=== PATIENT | male | born 1980 | race Hispanic/Latino ===

== ENCOUNTER 2017-06-22 13:50 | Emergency (ER) | payer MEDICAID, OTHER | END 2017-06-22 14:11 | disposition home or self-care (01) | LOC: EDH 13:50 | DX: F41.1 Generalized anxiety disorder (principal); F13.10 Sedative, hypnotic or anxiolytic abuse, uncomplicated; R45.851 Suicidal ideations ==

== ENCOUNTER 2017-06-23 07:20 | Emergency (ER) | payer MEDICAID, OTHER | END 2017-06-23 08:36 | disposition home or self-care (01) | LOC: EDH 07:20 | DX: R07.89 Other chest pain (principal); R06.02 Shortness of breath; F41.9 Anxiety disorder, unspecified | CPT/HCPCS: 71045; 93005 ==

== ENCOUNTER 2017-11-26 04:40 | Emergency (ER) | payer MEDICAID ==
[2017-11-26] MEDS ORDERED: HYDROXYZINE HCL 10 MG TABLET ONE (05:25)
[2017-11-26] MEDS ORDERED: LEVETIRACETAM 500 MG TABLET PO ONE (05:25)
== END 2017-11-26 05:48 | disposition home or self-care (01) ==
LOC: EDH 04:40
DX: F41.9 Anxiety disorder, unspecified (principal); F31.9 Bipolar disorder, unspecified

== ENCOUNTER 2018-04-03 00:29 | Emergency (ER) | payer MEDICAID ==
[2018-04-03] MEDS ORDERED: HYDROXYZINE HCL 25 MG TABLET ONE (01:23)
[2018-04-03] MEDS ORDERED: LEVETIRACETAM 500 MG TABLET PO ONE (01:29)
== END 2018-04-03 02:59 | disposition home or self-care (01) ==
LOC: EDH 00:29
DX: F41.9 Anxiety disorder, unspecified (principal); F13.20 Sedative, hypnotic or anxiolytic dependence, uncomplicated; F31.9 Bipolar disorder, unspecified; I10 Essential (primary) hypertension

== ENCOUNTER 2018-07-24 22:24 | Emergency (ER) | payer MEDICAID, OTHER ==
[2018-07-24 22:48] LABS: BASOPHILS % (AUTO) 0.4 % (0.0-5.0); LYMPHOCYTES % (AUTO) 6.1 % (21.0-51.0); MEAN CORPUSCULAR HEMOGLOBIN 31.7 pg (27.0-33.0); MEAN CORPUSCULAR HGB CONC 33.9 g/dL (32.0-36.0); MEAN CORPUSCULAR VOLUME 93.5 fL (79-99); NEUTROPHILS % (AUTO) 88.5 % (40.0-77.0); PLATELET COUNT (AUTO) 342 K/uL (130-400); RED BLOOD CELL COUNT(AUTO) 5.25 MIL/uL (4.50-6.20); RED CELL DISTRIBUTION WIDTH 14.3 % (11.0-15.5); WHITE BLOOD COUNT (AUTO) 17.9 K/uL (4.8-10.8)
[2018-07-24 22:57] LABS: CREATININE 1.1 mg/dL (0.5-1.5); POTASSIUM 3.1 mmol/L (3.5-5.1)
[2018-07-24] MEDS ORDERED: ONDANSETRON HCL 4 MG/2 ML VIAL ONE (23:34)
[2018-07-24] MEDS ORDERED: POTASSIUM CHLORIDE 20 MEQ ERTAB PO ONE (23:34)
[2018-07-24] MEDS ORDERED: LORAZEPAM 2 MG/ML 1 ML VIAL ONE (23:35)
[2018-07-25] MEDS ORDERED: CEFTRIAXONE SODIUM 1 GM ONE (01:15)
[2018-07-25 01:40] LABS: APPEARANCE,URINE Clear (CLEAR); BILIRUBIN,URINE Negative (NEGATIVE); COLOR,URINE Yellow (YELLOW); GLUCOSE, URINE (UA) Negative (NEGATIVE); KETONES,URINE >=160 mg/dL (NEGATIVE); LEUKOCYTE ESTERASE ,URINE Negative (NEGATIVE); NITRATE,URINE Negative (NEGATIVE); OCCULT BLOOD,URINE Small (NEGATIVE); PH,URINE 5.5 (5.0-8.0); PROTEIN,URINE Trace mg/dL (NEGATIVE); UROBILINOGEN,URINE 0.2 mg/dL (0.2-1.0)
[2018-07-25 01:47] LABS: AMPHET/METH SCREEN,URINE NEGATIVE (NEGATIVE); BARBITURATE SCREEN, URINE NEGATIVE (NEGATIVE); BENZODIAZEPINES SCREEN,URINE POSITIVE (NEGATIVE); CANNABINOID SCREEN,URINE NEGATIVE (NEGATIVE); COCAINE SCREEN,URINE NEGATIVE (NEGATIVE); OPIATE SCREEN,URINE NEGATIVE (NEGATIVE); PHENCYCLIDINE SCREEN,URINE NEGATIVE (NEGATIVE)
[2018-07-25 01:53] LABS: BACTERIA,URINE Rare /HPF (None Seen); RBC,URINE 0-1 /HPF (0-1); SQUAMOUS EPITHELIAL CELL,UR Moderate /HPF (0-2); WBC,URINE None Seen /HPF (0-1)
== END 2018-07-25 03:04 ==
LOC: EDH 22:24
DX: S00.83XA Contusion of other part of head, initial encounter (principal); E87.6 Hypokalemia; R19.7 Diarrhea, unspecified; F13.20 Sedative, hypnotic or anxiolytic dependence, uncomplicated; I10 Essential (primary) hypertension; F41.9 Anxiety disorder, unspecified; F31.9 Bipolar disorder, unspecified; W18.39XA Other fall on same level, initial encounter; Y93.89 Activity, other specified; Y92.89 Other specified places as the place of occurrence of the external cause; Y99.8 Other external cause status
CPT/HCPCS: 36415; 70450; 71045; 80048; 80305; 81001; 85025; 93005; 96361; 96374; 96375; 99285; J0696; J2060; J2405

== ENCOUNTER 2018-10-05 14:40 | Emergency (ER) | payer MEDICAID | END 2018-10-05 15:29 | disposition home or self-care (01) | LOC: EDH 14:40 | DX: S00.03XA Contusion of scalp, initial encounter (principal); F13.10 Sedative, hypnotic or anxiolytic abuse, uncomplicated; F41.9 Anxiety disorder, unspecified; F31.9 Bipolar disorder, unspecified; I10 Essential (primary) hypertension; F20.9 Schizophrenia, unspecified; Z72.0 Tobacco use; Y08.89XA Assault by other specified means, initial encounter; Y93.89 Activity, other specified; Y92.89 Other specified places as the place of occurrence of the external cause; Y99.8 Other external cause status ==

== ENCOUNTER 2018-10-06 11:02 | Emergency (ER) | payer MEDICAID ==
[2018-10-06] MEDS ORDERED: HYDROXYZINE HCL 25 MG TABLET ONE (11:15)
== END 2018-10-06 12:30 | disposition home or self-care (01) ==
LOC: EDH 11:02
DX: R07.89 Other chest pain (principal); T42.4X5A Adverse effect of benzodiazepines, initial encounter; F31.9 Bipolar disorder, unspecified; F20.9 Schizophrenia, unspecified; F41.9 Anxiety disorder, unspecified; I10 Essential (primary) hypertension; Z72.0 Tobacco use; Y92.89 Other specified places as the place of occurrence of the external cause
CPT/HCPCS: 84484; 93005

== ENCOUNTER 2019-09-10 09:43 | Emergency (ER) | payer MEDICAID | END 2019-09-10 10:31 | disposition left against medical advice (07) | LOC: EDH 09:43 | DX: S60.511A Abrasion of right hand, initial encounter (principal); R56.9 Unspecified convulsions; F13.10 Sedative, hypnotic or anxiolytic abuse, uncomplicated; F31.9 Bipolar disorder, unspecified; I10 Essential (primary) hypertension; F20.9 Schizophrenia, unspecified; Z79.899 Other long term (current) drug therapy; Z72.0 Tobacco use; X58.XXXA Exposure to other specified factors, initial encounter; Y93.89 Activity, other specified; Y92.89 Other specified places as the place of occurrence of the external cause; Y99.8 Other external cause status | CPT/HCPCS: 93005 ==

== ENCOUNTER 2019-12-08 09:19 | Emergency (ER) | payer MEDICAID ==
[2019-12-08] MEDS ORDERED: SODIUM CHLORIDE 0.9% 1000ML 1,000 ML IV ONE (09:20)
[2019-12-08] MEDS ORDERED: DiphenhydrAMINE HCL 50 MG/ML VIAL ONE (09:58)
[2019-12-08 10:37] LABS: BASOPHILS % (AUTO) 0.9 % (0.0-5.0); EOSINOPHILS % (AUTO) 3.6 % (0.0-8.0); HEMATOCRIT 51.7 % (42-54); LYMPHOCYTES % (AUTO) 24.6 % (21.0-51.0); MEAN CORPUSCULAR HEMOGLOBIN 31.9 pg (27.0-33.0); MEAN CORPUSCULAR HGB CONC 34.8 g/dL (32.0-36.0); MEAN CORPUSCULAR VOLUME 91.7 fL (79-99); MONOCYTES % (AUTO) 5.9 % (3.0-13.0); NEUTROPHILS % (AUTO) 64.5 % (40.0-77.0); PLATELET COUNT (AUTO) 307 K/uL (130-400); RED BLOOD CELL COUNT(AUTO) 5.64 MIL/uL (4.50-6.20); RED CELL DISTRIBUTION WIDTH 16.9 % (11.0-15.5); WHITE BLOOD COUNT (AUTO) 7.9 K/uL (4.8-10.8)
[2019-12-08 10:51] LABS: POTASSIUM 3.1 mmol/L (3.5-5.1)
[2019-12-08 10:55] LABS: ALBUMIN 3.8 g/dL (3.5-5.0); BILIRUBIN,TOTAL 0.5 mg/dL (0.2-1.0); TOTAL PROTEIN, SERUM 7.5 g/dL (6.0-8.3)
== END 2019-12-08 11:08 | disposition left against medical advice (07) ==
LOC: EDH 09:19 → EEVIPCON 09:19 → EDH 11:08
DX: G40.89 Other seizures (principal); F13.239 Sedative, hypnotic or anxiolytic dependence with withdrawal, unspecified; F41.1 Generalized anxiety disorder; F31.9 Bipolar disorder, unspecified; I10 Essential (primary) hypertension; F20.9 Schizophrenia, unspecified
CPT/HCPCS: 36415; 71045; 80053; 82550; 84484; 85025; 93005; 96361; 96374; 99285; J1200; J7030

== ENCOUNTER 2023-09-25 17:46 | Emergency (ER) | payer MEDICAID ==
[~2023-09-25] VITALS: Ht 175.3 cm; Wt 80.7 kg
[2023-09-25] MEDS: LORAZEPAM 2 MG/ML 1 ML VIAL IVP ONE (18:43)
[2023-09-25] MEDS: 0.9%NACL 1000ML 1,000 ML IV ONE (18:43)
[2023-09-25 18:50] LABS: BASOPHILS # (AUTO) 0.08 K/uL (0.00-0.20); EOSINOPHILS # (AUTO) 0.08 K/uL (0.00-0.70); HEMATOCRIT 49.4 % (42-54); IMMATURE GRANULOCYTE ABSOLUTE 0.09 K/uL (0-1); LYMPHOCYTES # (AUTO) 3.3 K/uL (1.0-4.8); LYMPHOCYTES % (AUTO) 39.7 % (21.0-51.0); MEAN CORPUSCULAR HEMOGLOBIN 31.7 pg (27.0-33.0); MEAN CORPUSCULAR HGB CONC 34.6 g/dL (32.0-36.0); MEAN CORPUSCULAR VOLUME 91.5 fL (79-99); MONOCYTES # (AUTO) 0.5 K/uL (0.1-1.0); NEUTROPHILS # (AUTO) 4.2 K/uL (1.8-7.7); NEUTROPHILS % (AUTO) 51.2 % (40.0-77.0); PLATELET COUNT (AUTO) 367 K/uL (130-400); RED CELL DISTRIBUTION WIDTH 12.4 % (11.0-15.5); WHITE BLOOD COUNT (AUTO) 8.3 K/uL (4.8-10.8)
[2023-09-25 19:00] LABS: CREATININE 0.8 mg/dL (0.5-1.3); POTASSIUM 4.3 mmol/L (3.5-5.1)
[2023-09-25 19:05] LABS: ALBUMIN 4.1 g/dL (3.5-5.0); BILIRUBIN,TOTAL 0.1 mg/dL (0.2-1.0); MAGNESIUM 1.9 mg/dL (1.80-2.40); TOTAL PROTEIN, SERUM 8.1 g/dL (6.0-8.3)
[2023-09-25 19:17] LABS: APPEARANCE,URINE CLEAR (CLEAR); BILIRUBIN,URINE NEGATIVE (NEGATIVE); COLOR,URINE COLORLESS (YELLOW); GLUCOSE, URINE (UA) NEGATIVE (NEGATIVE); KETONES,URINE NEGATIVE (NEGATIVE); LEUKOCYTE ESTERASE ,URINE NEGATIVE Leu/uL (NEGATIVE); NITRATE,URINE NEGATIVE (NEGATIVE); OCCULT BLOOD,URINE NEGATIVE (NEGATIVE); PROTEIN,URINE NEGATIVE (NEGATIVE); UROBILINOGEN,URINE 0.2 mg/dL (0.2-1.0)
[2023-09-25 19:18] LABS: ADD UA MICROSCOPIC YES
[2023-09-25 19:19] LABS: MUCUS,URINE RARE LPF (None Seen); RBC,URINE 0-1 /HPF (0-1); WBC,URINE 0-1 /HPF (0-1)
[2023-09-25 19:24] LABS: AMPHET/METH SCREEN,URINE NEGATIVE (NEGATIVE); BARBITURATE SCREEN, URINE NEGATIVE (NEGATIVE); BENZODIAZEPINES SCREEN,URINE POSITIVE (NEGATIVE); CANNABINOID SCREEN,URINE POSITIVE (NEGATIVE); COCAINE SCREEN,URINE NEGATIVE (NEGATIVE); OPIATE SCREEN,URINE NEGATIVE (NEGATIVE); PHENCYCLIDINE SCREEN,URINE NEGATIVE (NEGATIVE)
[2023-09-25 19:52] VITALS: BP 131/86; PULSE 98; RESP 18; O2SAT 97
== END 2023-09-25 20:10 | disposition home or self-care (01) ==
LOC: EDH 17:46
DX: F41.0 Panic disorder [episodic paroxysmal anxiety] (principal); F19.10 Other psychoactive substance abuse, uncomplicated; R07.89 Other chest pain; F31.9 Bipolar disorder, unspecified; F20.9 Schizophrenia, unspecified; Z88.8 Allergy status to other drugs, medicaments and biological substances
CPT/HCPCS: 99285; 96374; 71045; 96361; 82550; 83735; 84484; 80053; 80305; 85025; 36415; 93005; 81001; J7030; J2060

== ENCOUNTER 2024-06-04 09:38 | Emergency (ER) | payer MEDICAID ==
[~2024-06-04] VITALS: Ht 177.8 cm; Wt 88.5 kg
[2024-06-04] MEDS ORDERED: ALPR2TAB7 PO (09:57)
--- NOTE | 2024-06-04 09:59 | ERN ---
General Chief Complaint: Withdrawl Stated Complaint: BENZODIAZEPINE WITHDRAWL Time Seen by MD: 09:39 History of Present Illness Initial Comments 44-year-old male, history of benzodiazepine addiction, presents for benzodiazepine withdrawals. Patient reports that he used to take over 40 mg a day of benzodiazepines (Xanax) daily. He has been trying to taper on his own. He was down to 12 mg daily (6 mg in the a.m. 6 mg in the afternoon). He was gone to [facility] and other outpatient facilities in his but unable to coordinate outpatient care. He was requesting short course prescription for Xanax while trying to coordinate outpatient care. He does feel anxious, he was mild tremor. He reports that he was used in the past. Allergies: Coded Allergies: alprazolam (Unverified Allergy, Unknown, 09/10/19) Past Medical History Past Medical History: Anxiety, Bipolar, Depression, Schizophrenia Medical History Other: PTSD, MOOD SWINGS Past Surgical History: None ROS Dictation CONSTITUTIONAL: No chills, no fever, no weakness, no diaphoresis, no malaise. HEAD/FACE: No signs of trauma. EENT: No eye pain, no blurred vision, no tearing, no double vision, no ear pain, no ear discharge, no nose pain, no nasal congestion, no throat pain, no throat swelling, no mouth pain. RESPIRATORY: No cough, no orthopnea, no SOB, no stridor, no wheezing. CARDIOVASCULAR: No chest pain, no edema, no palpitations, no syncope. GASTROINTESTINAL/ABDOMINAL: No abdominal pain, no constipation, no diarrhea, no nausea, no vomiting. GENITOURINARY: No abnormal discharge, no dysuria, no frequent urination, no hematuria. No complaints of pain in the genitals. MUSCULOSKELETAL: No back pain, no gout, no joint pain, no joint swelling, no muscle pain, no muscle stiffness, no neck pain. INTEGUMENTARY: No change in color, no change in hair/nails, no dryness, no lesion, no lumps, no rash. NEUROLOGICAL/PSYCH: Anxiety and shaking HEMATOLOGIC/LYMPHATIC: Not anemic, no history of blood clots, no apparent bleeding, no bruising, glands not swollen. All Systems Negative, Except as Noted. Physical Exam Physical Exam Dictation VITAL SIGNS: Reviewed. GENERAL APPEARANCE: Alert, oriented x3, no acute distress. HEAD AND FACE: Non-traumatic. EYES: PERRL, pink conjunctivas, eyelid no trauma, anterior chamber clear. EARS: Pinnas intact and no signs of trauma or erythema. Ear canals clear and no discharge. TMs no erythema. NOSE: No discharge, no bleeding. OROPHARYNX: Mouth normal, teeth no caries, tongue pink. Pharynx clear, no erythema. Tonsils no exudates, no abscesses noted. Mucous membrane moist. NECK: Supple, non-tender, no thyromegaly, no masses, no JVD, no bruits. BREAST: Deferred. CHEST: No tenderness, no crepitus, no paradoxical movement, no retractions. LUNGS: Clear, well-ventilated, symmetric, no rales, no wheezing, no rhonchi, no stridor, good breath sounds bilaterally. HEART: Regular rate, regular rhythm, no murmur, no gallops. VASCULAR: No peripheral edema. ABDOMEN: Soft, positive bowel sounds, nondistended, no guarding, nontender, no rebound, no masses no hepatomegaly, no splenomegaly, no Reddy's sign, no hernias. RECTAL: Deferred. GENITAL: Deferred. NEUROLOGICAL: Normal speech, gross motor function intact, gross sensory function intact. Mild tremors MUSCULOSKELETAL: Neck nontender, full range of motion, back nontender, full range of motion. EXTREMITIES: Nontender, full range of motion. SKIN: Color pink, dry, no turgor, no rash, no lacerations, no abrasions, no contusions. LYMPHATICS: Deferred. MDM CC: Benzodiazepine withdrawal, anxiety, tremors Historian: Patient Comorbidities: Anxiety depression benzodiazepine abuse/addiction Limitations by social determinants of health: He has a insurance, he was having a hard time coordinate outpatient withdrawal care Differential diagnosis: Benzodiazepine withdrawal, polysubstance abuse, other. Vital signs are stable Clinically patient has a very mild tremors otherwise GCS 15 answering all questions appropriately. I had a long conversation with the patient. He was trying to get outpatient coordination, he was going to [facility] multiple times and has been unsuccessful about coordinating outpatient withdrawal care. Since he was a bit anxious and has some tremors, we will give a short course of alprazolam to prevent seizures while he tries to coordinate outpatient care. We will recommend return to the emergency department as needed. ED Course Vital Signs Date Time Temp Pulse Resp B/P (MAP) Pulse Ox O2 Delivery O2 Flow Rate FiO2 06/04/24 09:39 97.3 64 18 135/90 98 Room Air 0 DX & DISP Disposition: Discharge Departure Impression: Primary Impression: Benzodiazepine withdrawal Additional Impression: Anxiety Condition: Stable Scripts Alprazolam (Alprazolam) 2 Mg Tablet 1 TAB PO TIDP PRN for anxiety for 5 Days, #20 TAB 0 Refills Prov: INNA ALSTON DO 06/04/24 Additional Instructions: Your symptoms are consistent with a benzodiazepine withdrawal. As we discussed, try to taper down your usage 10-20% every 1-2 weeks. I recommend that you follow up as an outpatient. Try [facility] or other outpatient substance abuse clinics. Please return to the emergency department as needed. Referrals: NONE (PCP) INNA ALSTON DO Jun 04, 2024 09:58
[2024-06-04 10:00] VITALS: BP 135/90; PULSE 64; RESP 18; TEMP 97.4; O2SAT 98
== END 2024-06-04 10:23 | disposition home or self-care (01) ==
LOC: EDH 09:38
DX: F13.239 Sedative, hypnotic or anxiolytic dependence with withdrawal, unspecified (principal); F20.9 Schizophrenia, unspecified; F41.9 Anxiety disorder, unspecified
CPT/HCPCS: 99283

== ENCOUNTER 2024-06-15 14:37 | Emergency (ER) | payer MEDICAID ==
[~2024-06-15] VITALS: Ht 177.8 cm; Wt 88.5 kg
[~2024-06-15 14:37] MED LIST: ALPR2TAB7 PO
[2024-06-15 14:54] VITALS: TEMP 97.9
[2024-06-15 15:31] VITALS: BP 133/89; PULSE 69; RESP 18; O2SAT 98
--- NOTE | 2024-06-15 15:47 | ERN ---
General Chief Complaint: Anxiety/Panic Attack Stated Complaint: PHYC Time Seen by MD: 14:41 Source: patient History of Present Illness Initial Comments In his is a 44-year-old male coming in to be evaluated for anxiety. Patient states that he was prescribed Xanax two weeks ago at the ER but states he ran out of it so he is here for further evaluation and refill on his Xanax. He states that he does have an extensive history of anxiety in his not followed up with the PCP. Allergies: Coded Allergies: No Known Drug Allergies (Unverified Allergy, Unknown, 06/15/24) Home Meds Active Scripts Alprazolam (Alprazolam) 2 Mg Tablet, 1 TAB PO TIDP PRN for anxiety for 5 Days, #20 TAB 0 Refills Prov:INNA ALSTON DO 06/04/24 Past Medical History Past Medical History: Anxiety, Bipolar, Depression, Schizophrenia Medical History Other: PTSD, MOOD SWINGS Past Surgical History: None ROS Dictation CONSTITUTIONAL: No chills, no fever, no weakness, no diaphoresis, no malaise. HEAD/FACE: No signs of trauma. EENT: No eye pain, no blurred vision, no tearing, no double vision, no ear pain, no ear discharge, no nose pain, no nasal congestion, no throat pain, no throat swelling, no mouth pain. RESPIRATORY: No cough, no orthopnea, no SOB, no stridor, no wheezing. CARDIOVASCULAR: No chest pain, no edema, no palpitations, no syncope. GASTROINTESTINAL/ABDOMINAL: No abdominal pain, no constipation, no diarrhea, no nausea, no vomiting. GENITOURINARY: No abnormal discharge, no dysuria, no frequent urination, no hematuria. No complaints of pain in the genitals. MUSCULOSKELETAL: No back pain, no gout, no joint pain, no joint swelling, no muscle pain, no muscle stiffness, no neck pain. INTEGUMENTARY: No change in color, no change in hair/nails, no dryness, no lesion, no lumps, no rash. NEUROLOGICAL/PSYCH: No anxiety, not depressed, no emotional problem, no headache, no numbness, no pre-existing deficit, no history of seizures, no tremors, no weakness. HEMATOLOGIC/LYMPHATIC: Not anemic, no history of blood clots, no apparent bleeding, no bruising, glands not swollen. All Systems Negative, Except as Noted. Physical Exam Physical Exam Dictation VITAL SIGNS: Reviewed. GENERAL APPEARANCE: Alert, oriented x3, no acute distress, obese. HEAD AND FACE: Non-traumatic. EYES: PERRL, pink conjunctivas, eyelid no trauma, anterior chamber clear. EARS: Pinnas intact and no signs of trauma or erythema. Ear canals clear and no discharge. TMs no erythema. NOSE: No discharge, no bleeding. OROPHARYNX: Mouth normal, teeth no caries, tongue pink. Pharynx clear, no erythema. Tonsils no exudates, no abscesses noted. Mucous membrane moist. NECK: Supple, non-tender, no thyromegaly, no masses, no JVD, no bruits. BREAST: Deferred. CHEST: No tenderness, no crepitus, no paradoxical movement, no retractions. LUNGS: Clear, well-ventilated, symmetric, no rales, no wheezing, no rhonchi, no stridor, good breath sounds bilaterally. HEART: Regular rate, regular rhythm, no murmur, no gallops. VASCULAR: No peripheral edema. ABDOMEN: Soft, positive bowel sounds, nondistended, no guarding, nontender, no rebound, no masses no hepatomegaly, no splenomegaly, no Reddy's sign, no hernias. RECTAL: Deferred. GENITAL: Deferred. NEUROLOGICAL: Normal speech, gross motor function intact, gross sensory function intact. MUSCULOSKELETAL: Neck nontender, full range of motion, back nontender, full range of motion. EXTREMITIES: Nontender, full range of motion. SKIN: Color pink, dry, no turgor, no rash, no lacerations, no abrasions, no contusions. LYMPHATICS: Deferred. Results Laboratory and Microbiology Labs Reviewed?: Yes EKG/XRAY/US/CT/MRI EKG Comment 06/15/2024 time 3:48 p.m. Ventricular rate 68 Sinus rhythm [place] [address] wave elevation or depression MDM MDM: Differential diagnosis: Anxiety, depression, panic attack, drug-seeking behavior Patient is a 44-year-old gentleman coming in to be evaluated for anxiety. He states that he was prescribed Xanax on the and he states he ran out of it so he is here for a refill. I did advise him to follow up with his PCP for long-term management of anxiety. Patient will be discharged with SSRIs instead. ED Course Orders Procedure Category Date Status Time 12 Lead Ekg Tracing- EKG 06/15/24 Logged Technical 15:26 Hydroxyzine 50mg Vial PHA 06/15/24 Complete (Atarax 50mg Inj) 15:26 Current Medications Medications (Trade) Dose Ordered Sig/Marie Route PRN Reason Start Time Stop Time Status Last Admin Dose Admin Hydroxyzine HCl (ATArax 50MG INJ) 50 mg QID STAT IM 06/15/24 15:26 06/15/24 15:51 DC Vital Signs Date Time Temp Pulse Resp B/P (MAP) Pulse Ox O2 Delivery O2 Flow Rate FiO2 06/15/24 15:31 69 18 133/89 98 Room Air* 0 21 06/15/24 14:54 97.9 89 16 131/95 97 Room Air DX & DISP Disposition: Discharge Departure Impression: Primary Impression: Anxiety Condition: Stable Scripts Escitalopram Oxalate (Lexapro) 5 Mg Tablet 1 TAB PO DAILY for 30 Days, #30 TAB 0 Refills Prov: RENITA CHRISTIE MD 06/15/24 Additional Instructions: FOLLOW-UP WITH PRIMARY CARE PROVIDER IN 1 TO 2 DAYS. TAKE MEDICATIONS DI RECTED HERE IN THE EMERGENCY ROOM. OKAY TO CONTINUE HOME MEDICATIONS UNLESS OTHERWISE DISCUSSED DURING YOUR VISIT IN THE EMERGENCY ROOM TODAY. RETURN TO YOUR NEAREST EMERGENCY ROOM IF SYMPTOMS WORSEN OR IF THERE IS NO IMPROVEMENT. CALL 911 IF YOU NEED IMMEDIATE ASSISTANCE. TAKE TYLENOL [id number] NEEDED AND IF NO CONTRAINDICATIONS ARE PRESENT. INCREASE ORAL HYDRATION. A WOUND CULTURE OR URINE CULTURE WAS ORDERED HERE IN THE EMERGENCY ROOM DEPARTMENT PLEASE FOLLOW-UP WITH PRIMARY CARE PROVIDER AND ADVISE THEM TO GET REPEAT PORTS FROM OUR FACILITY. IF YOU HAD ANY DANIEL WRAP/SPLINTS THAT WERE APPLIED HERE, PLEASE DO NOT REMOVE THEM UNTIL YOU SEE YOUR PRIMARY CARE OR SPECIALTY. Referrals: Referrals: SELF,REFERRAL (PCP) NOLAN LUI MD Time of Disposition: 16:04 RENITA CHRISTIE MD Jun 15, 2024 15:47
[2024-06-15] MEDS: hydrOXYzine 50MG VIAL 50 MG/ML VIAL IM STA (15:59)
--- NOTE | 2024-06-15 15:59 | NUR ---
PT REFUSED HYDROXYZINE IM, PER PT "THAT DOESNT DO SHIT FOR ME" DR. CHRISTIE UPDATED.
[2024-06-15] MEDS ORDERED: ESCI5TAB PO (16:04)
--- NOTE | 2024-06-15 16:09 | NUR ---
PT REFUSED DISCHARGE INSTRUCTIONS AND REFUSED PRINTED PRESCRIPTION FOR LEXAPRO. STATES "I DONT WANT THAT SHIT" CHARGE AND DR. CHRISTIE UPDATED.
--- NOTE | 2024-06-15 16:16 | NUR ---
PT MAKING THREATS TO STAFF STATING " IM GOING TO KILL YOU", [employer] CALLED, WILL SEND OFFICER. MAYE SUP MADE AWARE
--- NOTE | 2024-06-16 08:18 | EKG ---
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
== END 2024-06-15 16:10 | disposition home or self-care (01) ==
LOC: EDH 14:37
DX: F41.9 Anxiety disorder, unspecified (principal); F20.9 Schizophrenia, unspecified; F31.9 Bipolar disorder, unspecified
CPT/HCPCS: 93005; 99283; J3410

== ENCOUNTER 2024-07-08 19:00 | Emergency (ER) | payer MEDICAID ==
[~2024-07-08] VITALS: Ht 177.8 cm; Wt 86.2 kg
[~2024-07-08 19:00] MED LIST changes: +ESCI5TAB PO
[2024-07-08 19:10] VITALS: BP 134/88; PULSE 81; RESP 20; TEMP 98
--- NOTE | 2024-07-08 19:27 | NUR ---
PT CALLED FOR Gue[facility]a ADAMS, NO ANSWER, NOT IN LOBBY, NOT IN MAIN ER
--- NOTE | 2024-07-08 19:31 | NUR ---
PT CALLED, NOT IN LOBBY, NOT IN MAIN ER
--- NOTE | 2024-07-08 19:41 | NUR ---
PT CALLED, NOT IN LOBBY, NOT IN MAIN ER. NO ANSWER
== END 2024-07-08 19:42 | disposition left against medical advice (07) ==
LOC: EDH 19:00
DX: F41.9 Anxiety disorder, unspecified (principal); Z53.21 Procedure and treatment not carried out due to patient leaving prior to being seen by health care provider

== ENCOUNTER 2024-07-13 17:54 | Emergency (ER) | payer MEDICAID ==
[~2024-07-13] VITALS: Ht 177.8 cm; Wt 89.8 kg
[2024-07-13 17:56] VITALS: BP 129/83; PULSE 70; RESP 16; TEMP 98.5
== END 2024-07-13 17:56 | disposition left against medical advice (07) ==
LOC: EDH 17:54
DX: F41.0 Panic disorder [episodic paroxysmal anxiety] (principal); Z53.21 Procedure and treatment not carried out due to patient leaving prior to being seen by health care provider

== ENCOUNTER 2024-09-05 13:33 | Emergency (ER) | payer MEDICAID ==
[~2024-09-05] VITALS: Ht 175.3 cm; Wt 92.5 kg
--- NOTE | 2024-09-05 13:47 | ERN ---
General Chief Complaint: Anxiety/Panic Attack Stated Complaint: WITHDRAWAL FROM MEDICATION(XANAX);SEIZURES Time Seen by MD: 13:40 Source: patient History of Present Illness Initial Comments Patient is a 44-year-old male coming in to be evaluated for withdrawals. Patient states that he has a feeling withdrawing from Xanax for three days. He states that the last Xanax he took was yesterday. Allergies: Coded Allergies: No Known Drug Allergies (Unverified Allergy, Unknown, 06/15/24) Home Meds Active Scripts Escitalopram Oxalate (Lexapro) 5 Mg Tablet, 1 TAB PO DAILY for 30 Days, #30 TAB 0 Refills Prov:RENITA CHRISTIE MD 06/15/24 Alprazolam (Alprazolam) 2 Mg Tablet, 1 TAB PO TIDP PRN for anxiety for 5 Days, #20 TAB 0 Refills Prov:INNA ALSTON DO 06/04/24 Past Medical History Past Medical History: Anxiety, Bipolar, Depression, Seizure, Schizophrenia Medical History Other: PTSD, MOOD SWINGS Past Surgical History: None ROS Dictation CONSTITUTIONAL: No chills, no fever, no weakness, no diaphoresis, no malaise. HEAD/FACE: No signs of trauma. EENT: No eye pain, no blurred vision, no tearing, no double vision, no ear pain, no ear discharge, no nose pain, no nasal congestion, no throat pain, no throat swelling, no mouth pain. RESPIRATORY: No cough, no orthopnea, no SOB, no stridor, no wheezing. CARDIOVASCULAR: No chest pain, no edema, no palpitations, no syncope. GASTROINTESTINAL/ABDOMINAL: No abdominal pain, no constipation, no diarrhea, no nausea, no vomiting. GENITOURINARY: No abnormal discharge, no dysuria, no frequent urination, no hematuria. No complaints of pain in the genitals. MUSCULOSKELETAL: No back pain, no gout, no joint pain, no joint swelling, no muscle pain, no muscle stiffness, no neck pain. INTEGUMENTARY: No change in color, no change in hair/nails, no dryness, no lesion, no lumps, no rash. NEUROLOGICAL/PSYCH: No anxiety, not depressed, no emotional problem, no headache, no numbness, no pre-existing deficit, no history of seizures, no trem ors, no weakness. HEMATOLOGIC/LYMPHATIC: Not anemic, no history of blood clots, no apparent bleeding, no bruising, glands not swollen. All Systems Negative, Except as Noted. Physical Exam Physical Exam Dictation VITAL SIGNS: Reviewed. GENERAL APPEARANCE: Alert, oriented x3, no acute distress, obese. HEAD AND FACE: Non-traumatic. EYES: PERRL, pink conjunctivas, eyelid no trauma, anterior chamber clear. EARS: Pinnas intact and no signs of trauma or erythema. Ear canals clear and no discharge. TMs no erythema. NOSE: No discharge, no bleeding. OROPHARYNX: Mouth normal, teeth no caries, tongue pink. Pharynx clear, no erythema. Tonsils no exudates, no abscesses noted. Mucous membrane moist. NECK: Supple, non-tender, no thyromegaly, no masses, no JVD, no bruits. BREAST: Deferred. CHEST: No tenderness, no crepitus, no paradoxical movement, no retractions. LUNGS: Clear, well-ventilated, symmetric, no rales, no wheezing, no rhonchi, no stridor, good breath sounds bilaterally. HEART: Regular rate, regular rhythm, no murmur, no gallops. VASCULAR: No peripheral edema. ABDOMEN: Soft, positive bowel sounds, nondistended, no guarding, nontender, no rebound, no masses no hepatomegaly, no splenomegaly, no Reddy's sign, no hernias. RECTAL: Deferred. GENITAL: Deferred. NEUROLOGICAL: Normal speech, gross motor function intact, gross sensory f unction intact. MUSCULOSKELETAL: Neck nontender, full range of motion, back nontender, full range of motion. EXTREMITIES: Nontender, full range of motion. SKIN: Color pink, dry, no turgor, no rash, no lacerations, no abrasions, no contusions. LYMPHATICS: Deferred. Results Laboratory and Microbiology Lab and Micro Result Laboratory Tests Test 09/05/24 13:48 09/05/24 13:55 Urine Color YELLOW (YELLOW) Urine Appearance CLEAR (CLEAR) Urine pH 5.5 (5.0-8.0) Urine Specific [place] 1.030 (1.001-1.031) Urine Protein 10 mg/dL (NEGATIVE) H Urine Glucose (UA) NEGATIVE mg/dL (NEGATIVE) Urine Ketones NEGATIVE mg/dL (NEGATIVE) Urine Occult Blood NEGATIVE (NEGATIVE) Urine Nitrate NEGATIVE (NEGATIVE) Urine Bilirubin NEGATIVE mg/dL (NEGATIVE) Urine Urobilinogen 0.2 mg/dL (0.2-1.0) Urine Leukocyte Esterase NEGATIVE [place]/uL Urine RBC 2-5 /HPF (0-1) H Urine WBC 2-5 /HPF (0-1) H Urine Squamous Epithelial Cells RARE /HPF (0-2) Urine Bacteria None /HPF (None Seen) Urine Opiates Screen POSITIVE (NEGATIVE) H Urine Barbiturates Screen NEGATIVE (NEGATIVE) Urine Phencyclidine Screen NEGATIVE (NEGATIVE) Urine Amphetamines Screen NEGATIVE (NEGATIVE) Urine Benzodiazepines Screen POSITIVE (NEGATIVE) H Urine Cocaine Screen NEGATIVE (NEGATIVE) Urine Marijuana (THC) Screen POSITIVE (NEGATIVE) H White Blood Count 9.4 K/uL (4.8-10.8) Red Blood Count 5.29 MIL/uL (4.50-6.20) Hemoglobin 16.7 g/dL (14.0-18.0) Hematocrit 48.7 % (42-54) Mean Corpuscular Volume 92.1 fL (79-99) Mean Corpuscular Hemoglobin 31.6 pg (27.0-33.0) Mean Corpuscular Hemoglobin Concent 34.3 g/dL (32.0-36.0) Red Cell Distribution Width 13.8 % (11.0-15.5) Platelet Count 307 K/uL (130-400) Mean Platelet Volume 9.5 fL (7.5-10.5) Immature Granulocyte % (Auto) 0.4 % (0-1) Neutrophils (%) (Auto) 66.8 % (40.0-77.0) Lymphocytes (%) (Auto) 25.8 % (21.0-51.0) Monocytes (%) (Auto) 5.7 % (3.0-13.0) Eosinophils (%) (Auto) 0.6 % (0.0-8.0) Basophils (%) (Auto) 0.7 % (0.0-5.0) Neutrophils # (Auto) 6.3 K/uL (1.8-7.7) Lymphocytes # (Auto) 2.4 K/uL (1.0-4.8) Monocytes # (Auto) 0.5 K/uL (0.1-1.0) Eosinophils # (Auto) 0.06 K/uL (0.00-0.70) Basophils # (Auto) 0.07 K/uL (0.00-0.20) Absolute Immature Granulocyte (auto 0.04 K/uL (0-1) Nucleated Red Blood Cells 0.0 % (0.0-0.19) Sodium Level 143 mmol/L (136-145) Potassium Level 4.1 mmol/L (3.5-5.1) Chloride Level 105 mmol/L (101-111) Carbon Dioxide Level 33 mmol/L (21-32) H Blood Urea Nitrogen 14 mg/dL (7-18) Creatinine 0.9 mg/dL (0.5-1.3) Glomerular Filtration Rate Calc 109 mL/min (>90) Random Glucose 118 mg/dL (70-105) H Total Calcium 8.8 mg/dL (8.5-10.1) Magnesium Level 2.20 mg/dL (1.80-2.40) Total Creatine Kinase 60 U/L (21-232) # Troponin I High Sensitivity 4 ng/L (4-75) Labs Reviewed?: Yes EKG/XRAY/US/CT/MRI EKG Comment 09/05/2024 time 2:06 p.m. Ventricular rate [address] wave elevation or depression [place] 140 X-RAY Comment Chest x-ray NAD MDM MDM: Differential diagnosis: Benzodiazepine abuse, cannabis abuse, anxiety, Rationale: Tests considered and ordered secondary to shared decision making include: Previous outside records reviewed: Old ER visits. Risk of complication and/or morbidity or mortality of patient management: None Medications-Per medication reconciliation Need for hospitalization: Patient does not meet criteria for hospitalization. Need for emergency major/minor surgery: No There are no social concerns with this patient. Prescription drug management Prescriptions will include symptomatic care Patient's prior external medical records from other ER visits were reviewed by me as indicated. Prior testing and results from previous visits were reviewed. Prior tests were taken into account with medical decision making and resource utilization, independent historian/historians were used to obtain complete medical history. I independently interpreted the test that were performed, results were reviewed by me and considered findings on radiology if ordered. Medical management and examination interpretation discussions were had by me with other qualified healthcare professionals as indicated for the patient's care. ED Course Orders Procedure Category Date Status Time Cbc With Differential LAB 09/05/24 Complete 13:43 Chest 1vw RAD 09/05/24 Taken 13:43 12 Lead Ekg Tracing- EKG 09/05/24 Complete Technical 13:43 Lactated Ringers PHA 09/05/24 Complete 1000ml (Lactated 14:00 Magnesium LAB 09/05/24 Complete 13:43 Creatine Kinase, Total LAB 09/05/24 Complete 13:43 Troponin I High LAB 09/05/24 Complete Sensitivity 13:43 Urinalysis Profile LAB 09/05/24 Complete 13:43 Basic Metabolic Panel LAB 09/05/24 Complete 13:43 Drug Screen Urine LAB 09/05/24 Complete 13:45 Hydroxyzine 50mg Vial PHA 09/05/24 Verified (Atarax 50mg Inj) 15:00 Hydroxyzine 50mg Vial PHA 09/05/24 Complete (Atarax 50mg Inj) 14:51 Diazepam 2 Mg Tab PHA 09/05/24 Verified (Valium 2 Mg Tab) 15:00 Current Medications Medications (Trade) Dose Ordered Sig/Marie Route PRN Reason Start Time Stop Time Status Last Admin Dose Admin Hydroxyzine HCl (ATArax 50MG INJ) 50 mg STK-MED ONCE IM 09/05/24 14:51 09/05/24 14:51 DC Lactated Ringer's 1,000 ml @ 0 mls/hr ONCE ONCE IV 09/05/24 14:00 09/05/24 14:01 DC 09/05/24 14:14 Vital Signs Date Time Temp Pulse Resp B/P (MAP) Pulse Ox O2 Delivery O2 Flow Rate FiO2 09/05/24 13:57 98.1 82 16 141/90 98 Room Air* 0 21 09/05/24 13:39 98.1 85 16 141/91 98 Room Air 0 DX & DISP Disposition: Discharge Departure Impression: Primary Impression: Anxiety Additional Impressions: Benzodiazepine withdrawal, Drug abuse Condition: Stable Additional Instructions: You have been reviewed in the emergency department at [facility] after presenting with chest pain. After considering your history, your risk factors, your EKG and your blood test troponins, have been found to be at very low risk less than (1 in 100) of having a major adverse cardiac event (like heart attack) in the near future. In the " low risk" group, the risks of doing further tests and treatment as the inpatient outweighs the benefits. In many patients in the low risk group for the test of any sort or unnecessary, however he should discuss this further with his general practitioner who will understand the medical and personal backgrounds better. Because we have never declared you" no risk" we would suggest. 1 returning for medical review if you have further episodes of chest pain/arm pain or other concerning symptoms like dizziness, collapse, palpitations or shortness of breath. 2. Following up with your local doctor who will consider the need for further testing and will also ensure that any modifiable risk factors you may have for heart disease are optimally managed. Patient will be discharged in stable condition at the moment discharge patient states , no chest pain Referrals: SELF,REFERRAL (PCP) NOLAN LUI MD Time of Disposition: 14:58 RENITA CHRISTIE MD Sep 05, 2024 13:47
[2024-09-05 13:57] VITALS: BP 141/90; PULSE 82; RESP 16; TEMP 98; O2SAT 98
[2024-09-05 14:01] LABS: AMPHET/METH SCREEN,URINE NEGATIVE (NEGATIVE); BARBITURATE SCREEN, URINE NEGATIVE (NEGATIVE); BENZODIAZEPINES SCREEN,URINE POSITIVE (NEGATIVE); CANNABINOID SCREEN,URINE POSITIVE (NEGATIVE); COCAINE SCREEN,URINE NEGATIVE (NEGATIVE); OPIATE SCREEN,URINE POSITIVE (NEGATIVE); PHENCYCLIDINE SCREEN,URINE NEGATIVE (NEGATIVE)
[2024-09-05 14:03] LABS: APPEARANCE,URINE CLEAR (CLEAR); BILIRUBIN,URINE NEGATIVE (NEGATIVE); COLOR,URINE YELLOW (YELLOW); GLUCOSE, URINE (UA) NEGATIVE (NEGATIVE); KETONES,URINE NEGATIVE (NEGATIVE); LEUKOCYTE ESTERASE ,URINE NEGATIVE Leu/uL (NEGATIVE); NITRATE,URINE NEGATIVE (NEGATIVE); OCCULT BLOOD,URINE NEGATIVE (NEGATIVE); PH,URINE 5.5 (5.0-8.0); PROTEIN,URINE 10 mg/dL (NEGATIVE); UROBILINOGEN,URINE 0.2 mg/dL (0.2-1.0)
[2024-09-05 14:04] LABS: BASOPHILS # (AUTO) 0.07 K/uL (0.00-0.20); BASOPHILS % (AUTO) 0.7 % (0.0-5.0); EOSINOPHILS # (AUTO) 0.06 K/uL (0.00-0.70); EOSINOPHILS % (AUTO) 0.6 % (0.0-8.0); HEMATOCRIT 48.7 % (42-54); IMMATURE GRANULOCYTE ABSOLUTE 0.04 K/uL (0-1); LYMPHOCYTES # (AUTO) 2.4 K/uL (1.0-4.8); LYMPHOCYTES % (AUTO) 25.8 % (21.0-51.0); MEAN CORPUSCULAR HEMOGLOBIN 31.6 pg (27.0-33.0); MEAN CORPUSCULAR HGB CONC 34.3 g/dL (32.0-36.0); MEAN CORPUSCULAR VOLUME 92.1 fL (79-99); MONOCYTES # (AUTO) 0.5 K/uL (0.1-1.0); MONOCYTES % (AUTO) 5.7 % (3.0-13.0); NEUTROPHILS # (AUTO) 6.3 K/uL (1.8-7.7); NEUTROPHILS % (AUTO) 66.8 % (40.0-77.0); PLATELET COUNT (AUTO) 307 K/uL (130-400); RED BLOOD CELL COUNT(AUTO) 5.29 MIL/uL (4.50-6.20); RED CELL DISTRIBUTION WIDTH 13.8 % (11.0-15.5); WHITE BLOOD COUNT (AUTO) 9.4 K/uL (4.8-10.8)
--- NOTE | 2024-09-05 14:09 | EKG ---
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
[2024-09-05] MEDS: LACTATED RINGERS 1000ML 1,000 ML IV ONE (14:14)
[2024-09-05 14:17] LABS: ADD UA MICROSCOPIC YES
[2024-09-05 14:18] LABS: POTASSIUM 4.1 mmol/L (3.5-5.1)
[2024-09-05 14:19] LABS: MUCUS,URINE MANY LPF (None Seen); SQUAMOUS EPITHELIAL CELL,UR RARE /HPF (0-2)
[2024-09-05 14:28] LABS: CREATININE 0.9 mg/dL (0.5-1.3)
[2024-09-05 14:33] LABS: MAGNESIUM 2.2 mg/dL (1.80-2.40)
[2024-09-05] MEDS ORDERED: hydrOXYzine 50MG VIAL 50 MG/ML VIAL IM ONE ×2 (14:51→15:00)
[2024-09-05] MEDS ORDERED: diazePAM 2 MG TAB PO ONE (15:00)
--- NOTE | 2024-09-05 15:01 | NUR ---
pt refused hydroxizine inj after med drawn
--- NOTE | 2024-09-05 15:09 | NUR ---
pt refused to wait for alternate medication to be profiled by pharmacy
--- NOTE | 2024-09-05 15:12 | HMCIMG ---
CHEST 1VW HISTORY: Chest pain COMPARISON: 12/26/2023 FINDINGS: A frontal projection of the chest was obtained. No acute pulmonary infiltrates is seen. The heart is borderline enlarged. Mild degenerative changes are seen. No evidence of aortic calcification is seen. IMPRESSION: 1. No acute pulmonary infiltrate is seen.
== END 2024-09-05 15:10 | disposition home or self-care (01) ==
LOC: EDH 13:33
DX: F41.9 Anxiety disorder, unspecified (principal); F13.239 Sedative, hypnotic or anxiolytic dependence with withdrawal, unspecified; F20.9 Schizophrenia, unspecified; F31.9 Bipolar disorder, unspecified; Z79.899 Other long term (current) drug therapy
CPT/HCPCS: 99285; 71045; 82550; 83735; 84484; 80048; 80305; 85025; 36415; 93005; 81001; J7120; J3410

== ENCOUNTER 2024-10-04 11:49 | Emergency (ER) | payer MEDICAID ==
[~2024-10-04] VITALS: Ht 157.5 cm; Wt 92.5 kg
--- NOTE | 2024-10-04 12:41 | ERN ---
ED Note History of Present Illness Stated Complaint: ANXIETY Chief Complaint: Anxiety/Panic Attack Time Seen by MD: 11:56 Dictation: 44-year-old male presenting to the emergency department with anxiety patient denies any chest pain or shortness of breath says he has got a long history and has been having trouble getting in to see his doctor to get a medication refill started today in the morning but has not on a daily basis now. Allergies: Coded Allergies: No Known Drug Allergies (Unverified Allergy, Unknown, 06/15/24) Home Meds Active Scripts Escitalopram Oxalate (Lexapro) 5 Mg Tablet, 1 TAB PO DAILY for 30 Days, #30 TAB 0 Refills Prov:RENITA CHRISTIE MD 06/15/24 Alprazolam (Alprazolam) 2 Mg Tablet, 1 TAB PO TIDP PRN for anxiety for 5 Days, #20 TAB 0 Refills Prov:INNA ALSTON DO 06/04/24 Past Medical History Past Medical History: Anxiety, Bipolar, Depression, Seizure, Schizophrenia Additional Past Medical Hx: PTSD, MOOD SWINGS Surgical History: None Review of System Dictation Constitutional: Negative for fever,chills, and weight loss Eyes: Negative for injury, pain,redness, and discharge ENT: Negative for injury,pain or swelling Cardiovascular: Negative for chest pain, palpitations, and edema Respiratory: Negative for shortness of breath, cough, and wheezing, Abdomen/GI: Negative for abdominal pain, nausea, vomiting, diarrhea, and constipation Back: Negative for injury and pain : Negative for injury, bleeding and discharge MS/Extremity: Negative for injury and deformity Skin: Negative for rash, and discoloration Neuro: Negative for headache, weakness, numbness, tingling, and seizure Psych: Per HPI Initial Vital Sign VS Vital Signs Date Time Temp Pulse Resp B/P (MAP) Pulse Ox O2 Delivery O2 Flow Rate FiO2 10/04/24 11:53 98.6 89 18 164/78 98 Physical Exam Dictation General: awake, alert, NAD Head/Face: Normocephalic, atraumatic Eyes: PERRL, EOMI, vision at baseline ENT: oral cavity clear, TMs clear, no signs of infection Neck: Trachea midline, supple, no nuchal rigidity Cardiovascular: RRR, normal S1/S2, No MRGs, no JVD Respiratory: CTAB, no respiratory distress, No rales or wheezes Abdomen: Soft, non-tender, non-distended, normal bowel sounds, no guarding or rebound. Skin: Warm, dry, normal turgor, no rash MS/Extremity: Pulses equal, no cyanosis, neurovascular intact, FROM Neuro: COAx4, GCS 15, strength 5/5, CN 2-12 intact, normal cerebellar exam, normal gait, Psych: Appears anxious ED Course ED Course Orders Procedure Category Date Status Time Alprazolam 0.5mg PHA 10/04/24 In Process (Xanax 0.5mg) 13:00 Current Medications Medications (Trade) Dose Ordered Sig/Marie Route PRN Reason Start Time Stop Time Status Last Admin Dose Admin Alprazolam (XANax 0.5MG) 0.5 mg ONCE ONCE PO 10/04/24 13:00 10/04/24 13:01 Vital Signs Date Time Temp Pulse Resp B/P (MAP) Pulse Ox O2 Delivery O2 Flow Rate FiO2 10/04/24 11:53 98.6 89 18 164/78 98 Medical Decision Making MDM MDM: Differential diagnosis: Rationale: Tests considered and ordered secondary to shared decision making include: Previous outside records reviewed: Old ER visits. Risk of complication and/or morbidity or mortality of patient management: None Medications-Per medication reconciliation Need for hospitalization: Patient does not meet criteria for hospitalization. Need for emergency major/minor surgery: No There are no social concerns with this patient. Prescription drug management Prescriptions will include symptomatic care Patient's prior external medical records from other ER visits were reviewed by me as indicated. Prior testing and results from previous visits were reviewed. Prior tests were taken into account with medical decision making and resource utilization, independent historian/historians were used to obtain complete medical history. I independently interpreted the test that were performed, results were reviewed by me and considered findings on radiology if ordered. Medical management and examination interpretation discussions were had by me wi th other qualified healthcare professionals as indicated for the patient's care. DX & DISP Disposition: Discharge Departure Impression: Primary Impression: Anxiety Condition: Stable Referrals: SELF,REFERRAL (PCP) ALIRIO DOUGHERTY MD Oct 04, 2024 12:41
[2024-10-04 12:44] VITALS: BP 151/73; PULSE 80; RESP 18; TEMP 98.6; O2SAT 98
== END 2024-10-04 12:48 | disposition home or self-care (01) ==
LOC: EDH 11:49
DX: F41.9 Anxiety disorder, unspecified (principal); F20.9 Schizophrenia, unspecified; F31.9 Bipolar disorder, unspecified; F41.0 Panic disorder [episodic paroxysmal anxiety]; Z79.899 Other long term (current) drug therapy
CPT/HCPCS: 99283